=== PATIENT | female | born 1980 | race Caucasian/White ===

== ENCOUNTER 2018-07-05 22:14 | Emergency (ER) | payer BC ==
[~2018-07-05] VITALS: Ht 160 cm; Wt 68.9 kg
[2018-07-05 22:39] VITALS: Ht 160 cm; Wt 68.9 kg
[2018-07-05 23:41] LABS: microscopic required? NO
[2018-07-05 23:50] LABS: UA SPECIFIC GRAVITY <=1.005 (1.005-1.035); urine erythrocyte NEGATIVE (NEGATIVE)
[2018-07-06 00:25] VITALS: BP 107/70
== END 2018-07-06 00:25 | disposition home or self-care (01) ==
LOC: ED 22:14
PROVIDERS: Emergency Medicine
DX: N76.0 Acute vaginitis (principal); B96.89 Other specified bacterial agents as the cause of diseases classified elsewhere
CPT/HCPCS: 87491; 87591